=== PATIENT | male | born 1960 | race Caucasian/White ===

== ENCOUNTER → 2019-02-24 | Outpatient (CLI) | payer OTHER ==
--- NOTE | 2019-02-28 12:15 | PCVCIMAG ---
APPROVED REPORT Imaging Protocol: Rest Tc-99m/Stress Tc-99m 1 day Study performed: 02/24/2019 13:57:10 Indication: CAD, Elevated Calcium, Fatigue, Submaximal Stress Echo Patient Location: Out-Patient Stress Nurse: Melanie Jones RN, JEOVANY Almonte Tech:MOLINA Wong Ht: 5 ft 9 in Wt: 195 lbs BSA: 2.04 m2 HR: 81 bpm BP: 142/90 mmHg BMI: 28.7 Rhythm: Sinus Rhythm Medical History Medical History: Age, Hyperlipidemia, High CA Score Medications: Allopurinol, NTG Allergies: No known drug allergies Exercise History: Physically active Resting Data Rest SPECT myocardial perfusion imaging was performed in supine position 45 minutes following the intravenous injection of 10.8 mCi of Tc-99m Sestamibi. Time of rest injection: 1315 Date: 02/24/2019 Administration Route: IV Administration Site: Right Arm Exercise Stress At peak stress, the patient was injected intravenously with 33.2mCi of Tc-99m Sestamibi. Time of stress injection: 1430 Date: 02/24/2019 Administration Route: IV Administration Site: Right Arm Patient continued to exercise for 11 minute(s). Gated Stress SPECT was performed 45 minutes after stress injection. The images were gated to evaluate regional wall motion and calculate left ventricular ejection fraction. Stress Test Details Stress Test: Exercise stress testing was performed using a Liam protocol. HRMax Heart Rate (APMHR): 159 bpm Resting HR: 81 bpmTarget HR (85% APMHR): 135 bpm Max HR Achieved: 148 bpm % of APMHR: 93 Recovery HR: 90 bpm HR response to stress: Normal HR response to stress BP Resting BP: 142/90 mmHg Max BP: 196/70 mmHg Recovery BP: 179/66 mmHg BP response to stress: Normal blood pressure response to stress. ECG Resting ECG: Sinus Rhythm Stress ECG: Sinus Tachycardia ST Change: Upsloping ST depression Maximum ST Deviation: 0.5 mm Arrhythmia: None Recovery ECG: Sinus Rhythm Clinical Reason for Termination: Maximal effort Stress Symptoms: Dyspnea Exercise duration: 11 min 00 sec Exercise capacity: 13.4 METs Overall Exercise Capacity for Age: Normal Scale: Active Angina Score: None Symptoms resolved during recovery. Stress ECG Conclusion 1. subjectively negative for ischemia 2. electrocardiographically negative for ischemia 3. satisfactory functional capacity Osorio Treadmill Score is 8.5 which is Low risk. Study Data Post stress, the left ventricular ejection was 66%.. SSS: 0 SRS: 3 SDS: 0 TID = 0.77. Perfusion There is a large area of moderately reduced uptake in the entire segment of the inferior wall which is seen on the stress images as well as the resting images. This area thickens and moves normally and is most consistent with attenuation artifact. Wall Motion Normal left ventricular wall motion. Nuclear Conclusion ECG Findings: non-ischemic Clinical Findings: non-ischemic Nuclear Findings: negative for ischemia Exercise Capacity: normal Left Ventricular Function: normal 1. low risk study 2. post stress lvef 66% without wall motion abnormalities Interpreted by: Ney Mendieta MD Electronically Approved: 02/28/2019 12:14:38 <Conclusion> 1. subjectively negative for ischemia 2. electrocardiographically negative for ischemia 3. satisfactory functional capacity
== END | disposition home or self-care (01) ==
LOC: PCVCIMAG 13:04
PROVIDERS: ATTEND Internal Medicine
DX: I25.10 Atherosclerotic heart disease of native coronary artery without angina pectoris (principal); E78.5 Hyperlipidemia, unspecified; R93.1 Abnormal findings on diagnostic imaging of heart and coronary circulation
CPT/HCPCS: 78452; 93017; A9500